=== PATIENT | male | born 1985 | race Two or more races ===

== ENCOUNTER 2016-03-09 01:44 | Emergency (ER) | payer SELFPAY ==
[~2016-03-09] VITALS: Ht 185.4 cm; Wt 81.6 kg
[2016-03-09 01:51] VITALS: BP 126/95
[2016-03-09] MEDS ORDERED: FLUORESCEIN SODIUM OPHTH 1 EA STRIP ONE (02:01)
[2016-03-09] MEDS ORDERED: TETRACAINE HCL/PF 0.5% UD 2 ML BOTTLE ONE (02:01)
== END 2016-03-09 02:15 | disposition home or self-care (01) ==
LOC: ER 01:49
DX: S05.02XA Injury of conjunctiva and corneal abrasion without foreign body, left eye, initial encounter (principal); S05.01XA Injury of conjunctiva and corneal abrasion without foreign body, right eye, initial encounter; H01.006 Unspecified blepharitis left eye, unspecified eyelid; F17.200 Nicotine dependence, unspecified, uncomplicated; X58.XXXA Exposure to other specified factors, initial encounter; Y93.9 Activity, unspecified; Y92.9 Unspecified place or not applicable; Y99.9 Unspecified external cause status
CPT/HCPCS: 99283; A4606; Z7610

== ENCOUNTER 2016-11-13 15:41 | Emergency (ER) | payer OTHER ==
[~2016-11-13] VITALS: Ht 185.4 cm; Wt 87.1 kg
--- NOTE | 2016-11-13 16:02 | NUR ---
[place] 38 AND FROM [facility] FOR MEDICAL CLEARANCE, UNWITNESS GLF, PT STATES THAT HE FELL AND HIT HIS L LATERAL HEAD. NAD NOTED, VSS. BHAKTA AT BS FOR EVAL.
[2016-11-13 16:23] LABS: BASOPHILS # (AUTO) 0.1 /CMM (0.0-0.2); BASOPHILS % (AUTO) 0.6 % (0.0-2.0); EOSINOPHILS # (AUTO) 0.2 /CMM (0.0-0.7); EOSINOPHILS % (AUTO) 1.6 % (0.0-6.0); HEMATOCRIT 53 % (39-51); HEMOGLOBIN 17.9 g/dL (13.5-17.5); LYMPHOCYTES # (AUTO) 2.5 /CMM (0.8-4.8); LYMPHOCYTES % (AUTO) 18.8 % (20.0-44.0); MEAN CORPUSCULAR HEMOGLOBIN 29 PG (26.0-33.0); MEAN CORPUSCULAR HGB CONC 34 g/dl (31.0-36.0); MEAN CORPUSCULAR VOLUME 86 fL (80-96); MONOCYTES # (AUTO) 0.6 /CMM (0.1-1.30); MONOCYTES % (AUTO) 4.6 % (2.0-12.0); NEUTROPHILS % (AUTO) 74.4 % (43.0-81.0); PLATELET COUNT (AUTO) 349 /CMM (150-450); RDW COEFFICIENT OF VARIATION 12.5 (11.5-15.0); RED BLOOD CELL COUNT(AUTO) 6.21 MIL/uL (4.5-6.0); WHITE BLOOD COUNT (AUTO) 13.4 K/uL (4.3-11.0)
[2016-11-13 16:33] LABS: CALCIUM, SERUM 9.1 mg/dL (8.5-10.1); CARBON DIOXIDE 32 mmol/L (21-32); CHLORIDE 101 mmol/L (98-107); GLUCOSE 105 mg/dL (74-106); POTASSIUM 5.2 mmol/L (3.5-5.1); SODIUM SERUM 138 mmol/L (136-145); UREA NITROGEN, BLOOD 15 mg/dL (7-18)
[2016-11-13 16:36] LABS: INR 0.99 (0.87-1.13); PROTHROMBIN TIME 10.3 SECS (9.5-12.7)
[2016-11-13 16:38] LABS: ALANINE AMINOTRANSFERASE 129 U/L (12-78); ALBUMIN 4.1 g/dL (3.4-5.0); ALKALINE PHOSPHATASE 119 U/L (46-116); ASPARTATE AMINOTRANSFERASE 46 U/L (15-37); BILIRUBIN,DIRECT 0.1 mg/dL (0.0-0.2); BILIRUBIN,TOTAL 0.3 mg/dL (0.2-1.0); TOTAL PROTEIN, SERUM 8.1 g/dL (6.4-8.2)
[2016-11-13 16:41] LABS: TROPONIN I < 0.017 ng/mL (0.00-0.056)
--- NOTE | 2016-11-13 18:23 | NUR ---
URINE SAMPLE COLLECTED SENT TO LAB
[2016-11-13 18:33] LABS: APPEARANCE,URINE Clear (CLEAR); BILIRUBIN,URINE Negative (NEGATIVE); BLOOD, URINE Negative Ery/uL (NEGATIVE); COLOR,URINE Yellow (YELLOW); KETONES,URINE Negative (NEGATIVE); LEUKOCYTE ESTERASE ,URINE Negative (NEGATIVE); NITRITE, URINE Negative (NEGATIVE); PROTEIN,URINE Trace mg/dl (NEGATIVE); UGLUCOSE Negative (NEGATIVE)
[2016-11-13 18:46] LABS: BACTERIA,URINE None seen /HPF (None Seen); RBC,URINE 0-2 /HPF (0-2); SQUAMOUS EPITHELIAL CELL,UR Few /HPF (None Seen); WBC,URINE 0-2 /HPF (0-3)
--- NOTE | 2016-11-13 20:07 | NUR ---
Patient discharged to home in stable condition. Written and verbal after care instructions given. Patient verbalizes understanding of instruction.
--- NOTE | 2016-11-13 20:07 | NUR ---
IV removed. Catheter intact and site benign. Pressure and 4x4 applied to site. No bleeding noted.
[2016-11-13 20:08] VITALS: BP 125/80
== END 2016-11-13 20:08 ==
LOC: ER 15:42
DX: R55 Syncope and collapse (principal); F17.200 Nicotine dependence, unspecified, uncomplicated
CPT/HCPCS: 36415; 70450-TC; 71010-TC; 80048-TC; 80076-TC; 81000-TC; 82962-TC; 84484-TC; 85025-TC; 85730-TC; A4606; Z7610

== ENCOUNTER 2018-09-22 03:44 | Emergency (ER) | payer MEDICAID ==
[~2018-09-22] VITALS: Ht 185.4 cm; Wt 86.6 kg
[2018-09-22 04:16] VITALS: BP 122/76
== END 2018-09-22 04:39 | disposition home or self-care (01) ==
LOC: ER 03:44
DX: B30.8 Other viral conjunctivitis (principal); F17.200 Nicotine dependence, unspecified, uncomplicated

== ENCOUNTER 2019-07-08 02:40 | Emergency (ER) | payer MEDICAID ==
[~2019-07-08] VITALS: Ht 185.4 cm; Wt 81.6 kg
[2019-07-08 02:52] VITALS: BP 148/82
--- NOTE | 2019-07-08 02:53 | NUR ---
PT AAOX4. AMBULATORY WITH STEADY GAIT. C/O LT WRIST PAIN AFTER PLAYING BASKETBALL @5PM, WORSENED PAST 1HR. PLACED ON MONITOR AND PULSE OX. VSS. AWAITING MD ORDERS.
[2019-07-08] MEDS ORDERED: IBUPROFEN 400 MG TABLET PO ONE (03:00)
[2019-07-08] MEDS ORDERED: IBUPROFEN 400 MG TABLET ONE (03:02)
--- NOTE | 2019-07-08 04:03 | NUR ---
PATIENT LEFT WITHOUT DISCHARGE INSTRUCTIONS.
== END 2019-07-08 04:10 | disposition home or self-care (01) ==
LOC: ER 02:41
DX: S63.592A Other specified sprain of left wrist, initial encounter (principal); F17.200 Nicotine dependence, unspecified, uncomplicated; W18.39XA Other fall on same level, initial encounter; Y93.67 Activity, basketball; Y92.310 Basketball court as the place of occurrence of the external cause; Y99.8 Other external cause status
CPT/HCPCS: 73110

== ENCOUNTER 2021-04-18 12:15 | Emergency (ER) | payer BC, MEDICAID ==
[~2021-04-18] VITALS: Ht 185.4 cm; Wt 90.7 kg
[2021-04-18 12:26] VITALS: BP 114/66
--- NOTE | 2021-04-18 12:35 | NUR ---
SON DROPPED A BALL ON HIS LEFT FOOT THIS MORNING, LEFT FOOT IS SPLINTED DUE TO ANKLE FX SUSTAINED 2 WEEKS AGO DONE IN [facility]. THE PATIENT RATES PAIN 5/10. WILL CONTINUE TO MONITOR THE PATIENT.
--- NOTE | 2021-04-18 16:11 | NUR ---
Patient eloped from facility. Dr. Sierra notified.
== END 2021-04-18 16:12 | disposition left against medical advice (07) ==
LOC: ER 12:22
DX: S82.302A Unspecified fracture of lower end of left tibia, initial encounter for closed fracture (principal); S82.452A Displaced comminuted fracture of shaft of left fibula, initial encounter for closed fracture; S92.512A Displaced fracture of proximal phalanx of left lesser toe(s), initial encounter for closed fracture; F17.200 Nicotine dependence, unspecified, uncomplicated; W20.8XXA Other cause of strike by thrown, projected or falling object, initial encounter; Y93.89 Activity, other specified; Y92.89 Other specified places as the place of occurrence of the external cause; Y99.8 Other external cause status
CPT/HCPCS: 73610-TC; 73630-TC